=== PATIENT | male | born 1955 | race Caucasian/White ===

== ENCOUNTER 2021-01-14 08:45 | Outpatient (CLI) | payer MEDICARE, MEDICAID, SELFPAY ==
--- NOTE | 2021-01-14 06:00 | DI.RAD_ITS ---
EXAM: XR PAIN CLINIC FLUORO JOINT IN CLINICAL HISTORY: Greater Trochanteric Bursitis TECHNIQUE: 2D and realtime digital imaging was performed. COMPARISON: No exams were available for comparison FINDINGS: C-arm fluoroscopy was utilized by Dr. Sharp during injection of trochanteric bursa. Hard copy shows lef t trochanteric bursa injection. Fluoro time, 11.1 seconds. IMPRESSION: RADIATION DOSE DELIVERED: Total DLP
[2021-01-14 08:54] VITALS: BP 116/70; PULSE 88; RESP 18; TEMP 36.9; O2SAT 97
[2021-01-14 09:31] VITALS: BP 128/92; PULSE 97; O2SAT 100
[2021-01-14] MEDS: Bupivacaine 0.5% Pres-Free 10 ML VIAL IJ (09:33)
[2021-01-14] MEDS: Omnipaque 240 MG/ML 50 ML BTL IJ (09:33)
[2021-01-14] MEDS: methylPREDNISolone ACETATE 80 MG/ML VIAL IJ (09:34)
--- NOTE | 2021-01-14 10:00 | PDOC.PAIN ---
Pain Clinic Procedure Note Procedure Note Procedure Note: Fluoroscopic guided left greater trochanteric BURSA STEROID INJECTION Date of Service: January 14, 2021 Patient: Damir Young Provider: Srinivas Sharp MD COMMENTS: patient has localized left lateral hip pain, tenderness directly over the left greater trochanteric bursa. Pre-operative diagnosis: left greater trochanteric bursitis Post-operative diagnosis: same as above Damir Young has been referred to the [facility] for fluoroscopic guided left greater trochanteric bursa injection. Damir Young was interviewed and the medical record reviewed. There were no medical, pharmacologic, radiographic or other structural contraindications to attempting fluoro-guided intra-bursal left greater trochanteric bursa injection. Risks and potential side effects as well as potential benefit of the procedure were reviewed with Damir Young, and his voiced concerns were addressed. After I believed that the patient was completely informed, the printed consent form was signed. Standard time-out procedure was performed. Damir Young was placed in the supine position on the fluoroscopy table and automated blood pressure cuff and pulse oximeter applied. The skin entry point for approaching lateral aspect of the left greater trochanteric bursa was identified under the most advantageous fluoroscopic view and marked. Following thorough Chlorhexadine preparation of the skin and draping, 1% lidocaine infiltration of the skin entry point and subcutaneous tissues was accomplished using a 1.5 25G needle. Next, the 3.5 25G needle was advanced under fluoroscopic guidance until it reached the bursa. Intra-bursal placement was confirmed by clear contrast pattern with injection of 0.5cc of omnipaque. Next, 3 cc solution of a mixture of 0.5cc of Depomedral (40 mg/cc) mixed with 2.5 cc of 0.5% Bupivocaine was injected into the bursa. Damir Young's vital signs were stable throughout the procedure and were as recorded in the docflowsheet by the nursing staff. Follow up plans and appointments were discussed with the Damir Young. Post procedure instruction was given as documented in nursing documentation and having met discharge criteria, Damir Young was discharged from the [facility]. COMMENTS: No complications. F/U with Ms Anna Olivera APRN on as needed basis. I personally performed this entire procedure. Srinivas Sharp MD Attending Physician
== END 2021-01-14 08:46 | disposition home or self-care (01) ==
LOC: PC 08:47
PROVIDERS: PCP Internal Medicine; Visit Provider Internal Medicine
DX: M70.62 Trochanteric bursitis, left hip (principal)
CPT/HCPCS: 20610; 77002; J1040; Q9967

== ENCOUNTER 2021-03-18 07:36 | Outpatient (CLI) | payer OTHER, MEDICAID, SELFPAY ==
--- NOTE | 2021-03-18 06:00 | DI.RAD_ITS ---
Exam(s) XR PAIN CLINIC LUMBAR SP 2V EXAM: XR PAIN CLINIC LUMBAR SP 2V CLINICAL HISTORY: Dx: Lumbar Spondylosis TECHNIQUE: 2D and realtime digital imaging was performed. CONTRAST MATERIAL: Refer to procedure report. COMPARISON: No exams were available for comparison FINDINGS: Fluoroscopy was provided for Dr. Sharp during the performance of a bilateral lumbar medial branch block . Please refer to the procedure report for complete details. Ka,r=8.93 mGy IMPRESSION:
[2021-03-18 07:52] VITALS: BP 128/68; PULSE 90; RESP 18; TEMP 37.1; O2SAT 100
[2021-03-18 08:24] VITALS: BP 127/66; PULSE 92; RESP 15; O2SAT 99
[2021-03-18] MEDS: Omnipaque 240 MG/ML 50 ML BTL IJ (08:26)
[2021-03-18] MEDS: Bupivacaine 0.5% Pres-Free 10 ML VIAL IJ (08:26)
--- NOTE | 2021-03-18 08:29 | PDOC.PAIN_ITS ---
Pain Clinic Procedure Note Procedure Note Procedure Note: Lumbar/Sacral Medial Branch Blocks Damir Young has been referred to the [facility] for lumbar/sacral medial branch blocks. 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 Lumbar extension aggravates his back pain. Patient was interviewed and the medical record reviewed. There were no medical, pharmacologic, radiographic or other structural contraindications to attempting fluoroscopically guided local anesthetic lumbar/sacral medial branch blocks. Risks and expected side effects as well as potential benefit of the procedure were reviewed and voiced concerns addressed. The printed consent form was signed and witnessed. Standard time-out procedure was performed. Patient was placed in the prone position on the fluoroscopy table and automated blood pressure cuff and pulse oximeter applied. The skin entry points for approaching the anatomic target points of the segmental medial branches of bilateral L3, L4, L5-DR were identified with anfluoroscopy and marked. Following thorough Chlorhexadine preparation of the skin and draping and 1% lidocaine infiltration of the skin entry points and subcutaneous tissues, a 22 gauge spinal needle was placed under fluoroscopic guidance down on to the target point for each respective segmental medial branch.Position was confirmed in A/P, oblique and lateral views with 0.25ml of omnipaque 240. Coult be this method .5ml 0.5% Bupivacaine was injected. Vital signs were stable throughout the procedure and were as recorded in the docflowsheet by the nursing staff. Follow up plans and appointments were discussed and was instructed to keep careful note of how the usual pain was modified by these injections. Specifically was asked to keep a pain diary for the next 24 hours using a numeric pain scale of 0-10 and report these results at the follow-up visit. Post procedure instruction was given as documented in the nursing documentation and having met discharge criteria. Patient was discharged from the [facility]. Based on the medial branches blocked today, if the patient has adequate relief and we are able to proceed to radiofrequency ablation, the treatment should result in the denervation of the bilateral L4/5 and L5/S1 facets. We would expect to denervate a total of 4 facets during the radiofrequency ablation. COMMENTS: patient instructed to engage in physical activity that typically aggravates his axial back pain, he should also keep a pain log for the next 4 hours. Srinivas Sharp MD Pain Management CC: Lyndsey Davis
== END 2021-03-18 07:37 | disposition home or self-care (01) ==
LOC: PC 07:37
PROVIDERS: PCP Internal Medicine; Visit Provider Internal Medicine
DX: M47.816 Spondylosis without myelopathy or radiculopathy, lumbar region (principal)
CPT/HCPCS: 64493; 64494; 72100; Q9967

== ENCOUNTER 2021-04-22 10:18 | Outpatient (CLI) | payer OTHER, MEDICAID, SELFPAY ==
--- NOTE | 2021-04-22 06:00 | DI.RAD_ITS ---
Exam(s) XR PAIN CLINIC LUMBAR SP 2V EXAM: XR PAIN CLINIC LUMBAR SP 2V CLINICAL HISTORY: Dx: Lumbar Spondylosis TECHNIQUE: 2D and realtime digital imaging was performed. Radiologist not present. CONTRAST MATERIAL: None. COMPARISON: No exams were available for comparison FINDINGS: Fluoroscopy was provided for pain management therapy. Please refer to procedure report or details. No images provided. Apparently L3, L4, and L5 lumbar medial branch blocks. Total fluoroscopy time 16.2 second Cumulative dose 3.81 Cumulative dose: nixon Neri=3.81 mGy IMPRESSION: RADIATION DOSE DELIVERED:
[2021-04-22 10:31] VITALS: BP 124/81; PULSE 99; RESP 20; TEMP 36.6; O2SAT 100
--- NOTE | 2021-04-22 10:47 | PDOC.PAIN ---
Pain Clinic Procedure Note Procedure Note Procedure Note: Lumbar/Sacral Medial Branch Blocks Damir Young has been referred to the [facility] for lumbar/sacral medial branch blocks. Pre-procedure VAS score 8/10 Post-procedure VAS score 5/10 Pre-operative diagnosis: lumbar spondylosis Post-operative diagnosis: same as above COMMENTS: patient responded well from first set of diagnostic lumbar medial branch nerve block and he returns for confirmatory block Patient was interviewed and the medical record reviewed. There were no medical, pharmacologic, radiographic or other structural contraindications to attempting fluoroscopically guided local anesthetic lumbar/sacral medial branch blocks. Risks and expected side effects as well as potential benefit of the procedure were reviewed and voiced concerns addressed. The printed consent form was signed and witnessed. Standard time-out procedure was performed. Patient was placed in the prone position on the fluoroscopy table and automated blood pressure cuff and pulse oximeter applied. The skin entry points for approaching the anatomic target points of the segmental medial branches of bilateral L3, L4, L5-DR were identified with anfluoroscopy and marked. Following thorough Chlorhexadine preparation of the skin and draping and 1% lidocaine infiltration of the skin entry points and subcutaneous tissues, a 22 gauge spinal needle was placed under fluoroscopic guidance down on to the target point for each respective segmental medial branch.Position was confirmed in A/P, oblique and lateral views with 0.25ml of omnipaque 240. Coult be this method 0.5ml of 2% Lidocaine. Vital signs were stable throughout the procedure and were as recorded in the docflowsheet by the nursing staff. Follow up plans and appointments were discussed and was instructed to keep careful note of how the usual pain was modified by these injections. Specifically was asked to keep a pain diary for the next 24 hours using a numeric pain scale of 0-10 and report these results at the follow-up visit. Post procedure instruction was given as documented in the nursing documentation and having met discharge criteria. Patient was discharged from the [facility]. Based on the medial branches blocked today, if the patient has adequate relief and we are able to proceed to radiofrequency ablation, the treatment should result in the denervation of the bilateral L4/5 and L5/S1 facet. We would expect to denervate a total of 4 facets during the radiofrequency ablation. I personally performed the entire procedure. Srinivas Sharp MD Pain Management CC: Lyndsey Davis
[2021-04-22 11:15] VITALS: BP 119/72; PULSE 104; RESP 13; O2SAT 100
[2021-04-22] MEDS: Omnipaque 240 MG/ML 50 ML BTL IJ (11:15)
[2021-04-22] MEDS: Lidocaine 2% Pres-Free 5 ML VIAL IJ (11:16)
== END 2021-04-22 10:19 | disposition home or self-care (01) ==
LOC: PC 10:18
PROVIDERS: PCP Internal Medicine; Visit Provider Internal Medicine
DX: M47.816 Spondylosis without myelopathy or radiculopathy, lumbar region (principal)
CPT/HCPCS: 64493; 64494; 72100; Q9967

== ENCOUNTER 2021-06-17 09:40 | Outpatient (CLI) | payer MEDICARE, MEDICAID, SELFPAY ==
--- NOTE | 2021-06-17 06:00 | DI.RAD_ITS ---
Exam(s) XR PAIN CLINIC LUMBAR SP 2V EXAM: XR PAIN CLINIC LUMBAR SP 2V CLINICAL HISTORY: Dx: Lumbar Spondylosis. TECHNIQUE: Fluoroscopy was provided for the referring physician for guidance with performing injecti on procedure. COMPARISON: No exams were available for comparison FINDINGS: Please see procedure note for details. Fluoro time 70.3 seconds RADIATION DOSE DELIVERED: nixon Neri=19.13 mGy
[2021-06-17 09:46] VITALS: BP 138/86; PULSE 91; RESP 20; TEMP 36.8; O2SAT 100
--- NOTE | 2021-06-17 10:11 | PDOC.PAIN ---
Pain Clinic Procedure Note Procedure Note Procedure Note: Bilateral Lumbar Radiofrequency with Coolief Machine PROCEDURE NOTE Date of Service: June 17, 2021 Patient: Damir Young Provider: Srinivas Sharp MD Pre Operative Diagnosis: Lumbosacral Spondylosis without Myelopathy Post Operative Diagnosis: Same Post procedure pain; VAS= 6/10 PROCEDURE: Radiofrequency Ablation of medial branches - RT L3, L4, L5- and LT L3, L4, L5-. Damir Young was brought into the fluoroscopy suite and positioned into the prone position on the fluoroscopy table and allowed to adjust to a position of comfort. A grounding pad was placed on the left thigh. The lumbar region was widely prepped with a chloraprep solution, allowed to air dry and draped in standard sterile surgical fashion. Local anesthesia was provided by 15 mL of 1% lidocaine delivered with a 25g needle. A 17g 100mm radiofrequency introducer needle was placed to the planned anatomic targets guided with intermittent fluoroscopy with a perpendicular approach to terminally place at the junction of the superior articular process and the transverse process of the bilateral L3, L4, L5, the base of the sacral ala on the bilateral for the L5 medial branch nerve. The stylets were removed and radiofrequency probes with a 4mm active tip were then inserted. Needle tip position of the probes was verified in the AP, oblique, and lateral views. At each site, the medial branch nerve was stimulated at 2 Hz to a maximum 1-2 volts determined to finalize safe needle and electrode placement. The patient was awake and responsive during this portion of the procedure. Each target was anesthetized with 1mL of 2% lidocaine for anesthesia for lesioning and then each target was lesioned at 80 degrees Celsius for 2 minutes and 30 seconds. Tissue impedences were noted to be between 250 and 500 Ohms. Post-lesioning, 0.5cc of mixture containing 0.5% Bupivocaine and 40mg/ml depomedrol was injected at each site. Electrodes and needles were then removed and bandages placed over the needle placement sites, the patient then returned to the supine position on a stretcher and transported to the recovery room without hemodynamic, neurologic, or allergic reactions. Fluoroscopic images were printed for hard copy recording and digitally archived. POST PROCEDURE EVALUATION: IMPRESSION: 1. Patient required 75mcg of IV Fentanyl and 1mg of Versed . 2. The patient will be contacted in 1-3 weeks 3. Estimated Blood Loss: <5 mls 4. Post-procedure pain level 2 out of 10 Follow up plans and appointments were discussed with the Damir . Post procedure instruction was given as documented in nursing documentation and having met discharge criteria, Damir was discharged from the [facility]. COMMENTS: No apparent complications. Post-procedure pain: VAS= 2/10. F/U with our office as needed. I personally performed this entire procedure. Srinivas Sharp MD Attending Physician Pain Management
[2021-06-17] MEDS: Lactated Ringers 1,000 ML 80 ML IV (10:20)
[2021-06-17] MEDS: fentaNYL 100 MCG/2 ML VIAL IVP ×3 (10:28→10:58)
[2021-06-17] MEDS: Midazolam 2 MG/2 ML VIAL IVP (10:28)
[2021-06-17 11:01] VITALS: BP 123/83; PULSE 93; RESP 13; O2SAT 100
[2021-06-17] MEDS: Lidocaine 1% Pres-Free 30 ML VIAL (11:06)
[2021-06-17] MEDS: Bupivacaine 0.5% Pres-Free 10 ML VIAL IJ (11:06)
[2021-06-17] MEDS: methylPREDNISolone ACETATE 40 MG/ML VIAL IJ (11:06)
[2021-06-17] MEDS: Lidocaine 2% Pres-Free 5 ML VIAL IJ (11:07)
== END 2021-06-17 09:41 | disposition home or self-care (01) ==
LOC: PC 09:41
PROVIDERS: PCP Internal Medicine; Visit Provider Internal Medicine
DX: M47.817 Spondylosis without myelopathy or radiculopathy, lumbosacral region (principal)
CPT/HCPCS: 64635; 64636; 72100; J1030; J2250; J3010

== ENCOUNTER → 2022-02-25 01:18 | Outpatient (CLI) | payer OTHER, MEDICAID, SELFPAY ==
[2022-02-25 08:49] VITALS: BP 138/84; PULSE 89; RESP 20; TEMP 36.7; O2SAT 100
--- NOTE | 2022-02-25 09:00 | DI.US_ITS ---
Exam(s) US PAIN CLINIC NEEDLE GUIDANCE EXAM: LT GREATER TROCHANTERIC BURSITIS COMPARISON: No exams were available for comparison TECHNIQUE: Ultrasound performed using standard protocol. FINDINGS: Ultrasound guidance was provided for left hip greater trochanteric bursa injection. Radiologist was not present for this procedure. IMPRESSION: DATA REPOSITORY:
[2022-02-25] MEDS: methylPREDNISolone ACETATE 40 MG/ML VIAL IJ (09:49)
--- NOTE | 2022-02-25 09:49 | PDOC.PAIN ---
Pain Clinic Procedure Note Procedure Note Procedure Note: ULTRASOUND GUIDED LEFT TROCHANTERIC BURSA INJECTION Pre-Procedural Evaluation: Damir Young has been referred to the [facility] for an Ultrasound Guided left trochanteric bursa injection for a chief complaint of left lateral hip area pain. He did have this procedure completed on 01/14/[address] Sharp and had about 6 months of pain relief. He is doing home stretching. Pre-procedure Pain Score: 6/10 Patient was interviewed and the medical record reviewed. There were no medical, pharmacologic, radiographic, or other structural contraindications to preforming an ultrasound guided injection. Risks and expected side effects as well as potential benefits of the procedure were reviewed. The patient consent form was signed and witnessed. Standard time-out procedure was performed. The use of direct ultrasound visualization of the needle (rather than a non-guided injection) was required to increase patient safety by excluding inadvertent intramuscular, intratendinous, or intraneural needle placement and minimizing bleeding by avoiding osteochondral or vascular injury from the needle. Additionally, the increased accuracy of placement may increase clinical effectiveness and will allow higher diagnostic specificity when evaluating effectiveness of this injection. Procedure Description: The patient was placed in the right lateral recumbant position and automated blood pressure cuff and pulse oximeter applied for monitoring during the procedure and recorded in the medical record. Pre-injection ultrasound scanning of the area of interest was performed using linear transducer, identifying relevant anatomy, landmarks, and neurovascular structures allowing for optimal needle path. The site was then prepared in the usual sterile fashion, using thorough Chlorhexadine preparation of the skin and sterile draping. The same ultrasound transducer was then passed into the sterile field using sterile probe cover and sterile ultrasound gel. The injection target was again visualized. Skin and subcutaneous tissues were anesthetized with 1 mL of 1% Lidocaine. A 21G 3.5 Pajunk ultrasound needle was placed under live ultrasound guidance, using an in-plane approach, to the target area. After visualization of the needle tip at the target area, 1 cc of Depomedrol (40 mg/cc) was delivered after negative aspiration for blood. After this 4 cc of 1% Lidocaine was delivered to the left trochanteric bursa. Ultrasound images were captured and stored for documentation purposes. Post-procedure Pain Score:0/10 Vital signs were stable throughout the procedure and were as recorded in the docflowsheet by the nursing staff. Follow up plans and appointments were discussed with the patient.Post procedure instruction was given as documented in nursing documentation and having met discharge criteria, they were discharged from the [facility]. COMMENTS: He will continue with his home exercises. Syed Del Rio DO, MPH [facility]-Pain Management [facility]
[2022-02-25 09:53] VITALS: PULSE 88; O2SAT 100
== END ==
PROVIDERS: PCP Internal Medicine; Visit Provider Preventive Medicine Occupational Medicine
DX: M25.552 Pain in left hip (principal)
CPT/HCPCS: 20611; 76942; J1030